=== PATIENT | female | born 2000 | race Caucasian/White ===

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

== ENCOUNTER → 2019-12-18 | Outpatient (CLI) | payer OTHER | LOC: GMA CAST 12:49 | PROVIDERS: ATTEND Family Medicine Sports Medicine | DX: R53.83 Other fatigue (principal); Z79.899 Other long term (current) drug therapy ==